=== PATIENT | female | born 1950 | race Caucasian/White ===

== ENCOUNTER 2017-09-10 10:14 | Outpatient (CLI) | payer BC, MEDICARE | END 2017-09-10 10:15 | disposition home or self-care (01) | LOC: BICMAMMO 10:14 | PROVIDERS: ATTEND Family Medicine | DX: Z12.31 Encounter for screening mammogram for malignant neoplasm of breast (principal); Z13.820 Encounter for screening for osteoporosis; Z78.0 Asymptomatic menopausal state; M85.852 Other specified disorders of bone density and structure, left thigh | CPT/HCPCS: 77063; 77067; 77080 ==

== ENCOUNTER 2018-10-08 10:29 | Outpatient (CLI) | payer BC, MEDICARE, OTHER ==
--- NOTE | 2018-10-08 12:07 | MMO ---
Bilateral MAMMO Bilat Screen [facility]. CLINICAL HISTORY: Patient is 68 years old and is seen for screening. The patient has no family history of breast cancer. The patient has no personal history of cancer. The patient has a history of right Lumpectomy in 1970 - benign. VIEWS: The views performed were: bilateral craniocaudal with tomosynthesis and bilateral mediolateral oblique with tomosynthesis. FILMS COMPARED: The present examination has been compared to a prior imaging study performed at [facility] on 09/10/2017. MAMMOGRAM FINDINGS: There are scattered fibroglandular densities. Finding 1: There are stable benign appearing calcifications seen in both breasts. Finding 2: There are stable masses seen in both breasts. There are no suspicious masses, suspicious calcifications, or new areas of architectural distortion. IMPRESSION: THERE IS NO MAMMOGRAPHIC EVIDENCE OF MALIGNANCY. A ROUTINE FOLLOW-UP MAMMOGRAM IN 1 YEAR IS RECOMMENDED. THE RESULTS OF THIS EXAM WERE SENT TO THE PATIENT. ACR BI-RADS Category 2 - Benign finding MAMMOGRAPHY NOTE: 1. A negative mammogram report should not delay a biopsy if a dominant of clinically suspicious mass is present. 2. Approximately 10% to 15% of breast cancers are not detected by mammography. 3. Adenosis and dense breasts may obscure an underlying neoplasm. Reported by: ALBERTO HILLS MD Electonically Signed: [id number]
--- NOTE | 2018-10-08 14:04 | BD ---
DEXA BONE DENSITY STUDY: Date: 10/08/18 HISTORY: 68-year-old postmenopausal female for screening. FINDINGS: Lumbar Spine: BMD (g/cm2) L1 0.782 T-Score: -1.9 L2 0.828 T-Score: -1.8 L3 0.902 T-Score: -1.7 L4 0.834 T-Score: -2.1 L1-L4 0.841 T-Score: -1.9 Femoral Neck: 0.676 T-Score: -1.6 Total Femur: 0.836 T-Score: -0.9 IMPRESSION: Osteopenia. This patient has a 10 year WHO fracture risk of a major osteoporotic fracture of 15% and hip fracture of 2.1%. POS: PAO
== END 2018-10-08 10:30 | disposition home or self-care (01) ==
LOC: BICMAMMO 10:29
PROVIDERS: ATTEND Family Medicine
DX: Z12.31 Encounter for screening mammogram for malignant neoplasm of breast (principal); Z13.820 Encounter for screening for osteoporosis; M85.89 Other specified disorders of bone density and structure, multiple sites; Z78.0 Asymptomatic menopausal state
CPT/HCPCS: 77063; 77067; 77080

== ENCOUNTER 2020-03-01 10:58 | Emergency (ER) | payer MEDICARE, OTHER ==
[2020-03-01] MEDS ORDERED: Ondansetron PF 4 MG/2 ML Vial ONE (11:31)
[2020-03-01] MEDS ORDERED: Dexamethasone 4 mg/ml Vial ONE (11:31)
[2020-03-01] MEDS ORDERED: Meclizine HCl 25 MG TAB ONE (11:31)
[2020-03-01] MEDS ORDERED: Lorazepam 2 MG/ML VIAL ONE (11:31)
[2020-03-01 11:42] LABS: #Basophils 0.1 thou/uL (0.0-0.2); #Eosinphils 0.2 thou/uL (0.0-0.7); #Lymphocytes 1.1 thou/uL (1.20-3.40); #Monocytes 0.5 thou/uL (0.11-0.59); #Neutrophils 1.8 thou/uL (1.40-6.50); %Basophils 1.4 % (0.0-1.0); %Eosinophils 5.4 % (0.0-10.0); %Lymphocytes 29.9 % (21.0-51.0); %Monocytes 13.6 % (0.0-10.0); %Neutrophils 49.7 % (42.0-75.0); Mean Corpuscular HGB CONC 32.7 g/dL (32.0-36.0); Mean Corpuscular Hemoglobin 30.6 pg (27.0-31.0); Mean Corpuscular Volume 93.4 fL (78.0-98.0); Mean Platelet Volume 7.8 fL (7.4-10.4); Platelet Count 209 thou/uL (130-400); RBC Distribution Width 12.9 % (11.5-14.5); Red Blood Cell (RBC) Count 3.92 mill/uL (4.20-5.40); White Blood Cell (WBC) Count 3.7 thou/uL (4.8-10.8)
[2020-03-01 12:00] LABS: ALT (SGPT) 18 U/L (8-55); AST (SGOT) 31 U/L (5-34); Albumin 3.9 g/dL (3.4-4.8); Alkaline Phosphatase 68 U/L (40-110); Anion Gap 16 mmol/L (10-20); BUN (Urea Nitrogen) 10 mg/dL (9.8-20.1); Bilirubin, Total 0.7 mg/dL (0.2-1.2); CK (CPK) 106 U/L (29-168); Calc. Creatinine Clearance 0 mL/min (70-130); Calcium 9.3 mg/dL (7.8-10.44); Carbon Dioxide 21 mmol/L (23-31); Globulin 3.6 g/dL (2.4-3.5); Glucose 116 mg/dL (80-115); Potassium 4.2 mmol/L (3.5-5.1); Protein, Total 7.5 g/dL (6.0-8.3)
[2020-03-01 12:15] LABS: Chloride 106 mmol/L (98-107); Sodium 139 mmol/L (136-145)
--- NOTE | 2020-03-01 13:07 | RAD ---
PORTABLE CHEST: HISTORY: Syncope. COMPARISON: 03/28/2016 exam. FINDINGS: Heart size and mediastinum are within normal limits. The lungs appear clear of any infiltrative proc ess. IMPRESSION: No active intrathoracic disease. POS: AH
--- NOTE | 2020-03-01 13:28 | CT ---
HEAD CT WITHOUT COTNRAST: DATE: 03/01/2020. COMPARISON: None. HISTORY: Dizziness and lightheaded. Vertigo with nausea. TECHNIQUE: Axial CT imaging at 5 mm intervals from vertex through the skull base without contrast. FINDINGS: The imaged paranasal sinuses and mastoid air cells are well aerated. No displaced calvarial fracture. No intracranial hemorrhage, midline shift, mass effect, or ventricu lar enlargement. IMPRESSION: No intracranial hemorrhage or displaced calvarial fracture. POS: GIOVANY
--- NOTE | 2020-03-03 15:23 | EKG ---
Test Reason : DIZZY Blood Pressure : / mmHG Vent. Rate : 078 BPM Atrial Rate : 078 BPM P-R Int : 144 ms QRS Dur : 080 ms QT Int : 416 ms P-R-T Axes : 005 -13 017 degrees QTc Int : 474 ms Normal sinus rhythm Voltage criteria for left ventricular hypertrophy Abnormal ECG Confirmed by RIKY ANDUJAR, PEARL ([id number]), editor news SKYE LOPEZ ([id number]) on 03/03/2020 3:22:55 PM Referred By: RIKY Confirmed By:PEARL LAN MD
== END 2020-03-01 13:05 | disposition home or self-care (01) ==
LOC: ERS 10:58
DX: R42 Dizziness and giddiness (principal)
CPT/HCPCS: 70450; 71045; 80053; 82550; 84484; 85025; 93005; 96374; 96375; J1100; J2060; J2405

== ENCOUNTER 2020-11-06 13:49 | Outpatient (CLI) | payer MEDICARE | END 2020-11-06 13:50 | disposition home or self-care (01) | LOC: BICMAMMO 13:49 | PROVIDERS: ATTEND Family Medicine | DX: Z12.31 Encounter for screening mammogram for malignant neoplasm of breast (principal); Z13.820 Encounter for screening for osteoporosis; M85.89 Other specified disorders of bone density and structure, multiple sites; Z78.0 Asymptomatic menopausal state; Z91.89 Other specified personal risk factors, not elsewhere classified | CPT/HCPCS: 77063; 77067; 77080 ==

== ENCOUNTER 2022-01-10 11:59 | Outpatient (CLI) | payer MEDICARE, OTHER | END 2022-01-10 12:00 | disposition home or self-care (01) | LOC: BICMAMMO 11:59 | PROVIDERS: ATTEND Family Medicine | DX: Z12.31 Encounter for screening mammogram for malignant neoplasm of breast (principal); Z98.890 Other specified postprocedural states | CPT/HCPCS: 77063; 77067 ==

== ENCOUNTER 2023-02-02 09:53 | Outpatient (CLI) | payer MEDICARE | END 2023-02-02 09:54 | disposition home or self-care (01) | LOC: BICMAMMO 09:53 | PROVIDERS: ATTEND Family Medicine | DX: Z12.31 Encounter for screening mammogram for malignant neoplasm of breast (principal); Z91.89 Other specified personal risk factors, not elsewhere classified; R30.0 Dysuria | CPT/HCPCS: 77063; 77067; 81001; 87086 ==

== ENCOUNTER 2024-12-23 12:19 | Outpatient (CLI) | payer MEDICARE, OTHER ==
[~2024-12-23 12:19] MED LIST: Iopamidol 370 76% 100 ML VIAL ONE
== END 2024-12-23 12:20 | disposition home or self-care (01) ==
LOC: CT 12:19
PROVIDERS: ATTEND Family Medicine
DX: R31.29 Other microscopic hematuria (principal); K76.0 Fatty (change of) liver, not elsewhere classified; N28.89 Other specified disorders of kidney and ureter
CPT/HCPCS: 74178; Q9967

== ENCOUNTER 2024-12-23 13:13 | Outpatient (CLI) | payer MEDICARE, OTHER | END 2024-12-23 13:14 | disposition home or self-care (01) | LOC: BICMAMMO 13:13 | PROVIDERS: ATTEND Family Medicine | DX: Z12.31 Encounter for screening mammogram for malignant neoplasm of breast (principal); Z91.89 Other specified personal risk factors, not elsewhere classified | CPT/HCPCS: 77063; 77067 ==